=== PATIENT | male | born 1970 | race Caucasian/White ===

== ENCOUNTER 2024-10-21 16:34 | Emergency (ER) | payer OTHER ==
[~2024-10-21] VITALS: Ht 208.3 cm; Wt 115.0 kg
[2024-10-21 16:36] VITALS: BP 128/84; PULSE 72; RESP 16; TEMP 37.1; O2SAT 99
[2024-10-21] MEDS ORDERED: TETANUS, DIPHTHERIA, PERTUSSIS VAC/PF 0.5ML (>10YR OLD) IM ONE (19:15)
[2024-10-21] MEDS: LIDOCAINE HCL 1% 20ML VIAL INFIL ONE (19:46)
== END 2024-10-21 20:14 | disposition left against medical advice (07) ==
LOC: ER 16:34
DX: S01.81XA Laceration without foreign body of other part of head, initial encounter (principal); W19.XXXA Unspecified fall, initial encounter; Y93.89 Activity, other specified; Y92.89 Other specified places as the place of occurrence of the external cause; Y99.8 Other external cause status
CPT/HCPCS: 99283; 12002; J3490